=== PATIENT | male | born 1975 | race American Indian/Alaskan Native ===

== ENCOUNTER 2017-08-19 14:09 | Emergency (ER) | payer SELFPAY ==
--- NOTE | 2017-08-19 14:36 | Emergency Department Report ---
ED General Adult HPI - General Chief complaint: Chest Pain Stated complaint: CHEST PAIN Time Seen by Provider: 08/19/17 14:24 Source: patient, EMS (ems notes not available at time of chart dictation), RN notes reviewed Mode of arrival: Stretcher Limitations: No Limitations - History of Present Illness Initial comments: Primary cardiology: [facility]; Aleksandr Andrea This is a 41-year-old male, unknown to this provider previously, follows with the aforementioned ward attendant for paroxysmal A. fib, currently on systemic anticoagulation and reports compliance with systemic anticoagulation. Presents to the ER with a complaint of resolved chest pain and headache. The headache is frontal and bitemporal. It started yesterday. It is not sudden or thunderclap in nature. It did not reach maximal intensity within an hour. There is no neck pain or neck stiffness. There is no ataxia. The headache does not have exacerbating or relieving factors, with the exception of percussion of the forehead, which worsens the headache. He also describes left-sided chest pressure and pulling. It started at 10:00 this morning. It is intermittent. It does not radiates to the back, arms or neck. He denies nausea, vomiting, diaphoresis. He denies DVT, pulmonary embolus risk factors. -: Gradual Location: head, chest Quality: other (History of present illness) Consistency: other (as per history of present illness) Improves with: other (as per history of present illness) Worsens with: other (as per history of present illness) Associated Symptoms: chest pain, headaches. denies: confusion, cough, diaphoresis, fever/chills, loss of appetite, malaise, nausea/vomiting, rash, seizure, shortness of breath, syncope, weakness - Related Data Allergies Allergy/AdvReac Type Severity Reaction Status Date / Time No Known Allergies Allergy Unverified 08/19/17 14:17 ED Review of Systems ROS: Stated complaint: CHEST PAIN Other details as noted in HPI Comment: All other systems reviewed and negative Constitutional: denies: fever Cardiovascular: chest pain Neurological: headache ED Past Medical Hx - Past Medical History Hx Hypertension: Yes Hx Diabetes: Yes Additional medical history: AFIB - Social History Smoking Status: Never Smoker Substance Use Type: None ED Physical Exam - General Limitations: No Limitations General appearance: alert, in no apparent distress - Head Head exam: Present: atraumatic, normocephalic, other (there is frontal sinus tenderness to percussion) - Eye Eye exam: Present: normal appearance, EOMI. Absent: nystagmus - ENT ENT exam: Present: normal exam, normal orophraynx, mucous membranes moist, normal external ear exam - Neck Neck exam: Present: normal inspection, full ROM - Respiratory Respiratory exam: Present: normal lung sounds bilaterally. Absent: respiratory distress - Cardiovascular Cardiovascular Exam: Present: regular rate, normal rhythm, normal heart sounds. Absent: bradycardia, tachycardia, irregular rhythm, systolic murmur, diastolic murmur, rubs, gallop - GI/Abdominal GI/Abdominal exam: Present: soft, normal bowel sounds. Absent: distended, tenderness, guarding, rebound, rigid, pulsatile mass - Rectal Rectal exam: Present: deferred - Extremities Exam Extremities exam: Present: normal inspection, full ROM, normal capillary refill , other (2+ pulses noted in the bilateral upper, lower extremities, compartments are soft, there is no palpable cord, there is a negative Homans sign.). Absent: pedal edema, joint swelling, calf tenderness - Back Exam Back exam: Present: normal inspection, full ROM. Absent: paraspinal tenderness , vertebral tenderness - Neurological Exam Neurological exam: Present: alert, oriented X3, CN II-XII intact, normal gait ( negative pass pointing. Negative pronator drift. Normal [id number]. Normal gait.), other (Extraocular movements intact. Tongue midline. No facial droop. Facial sensation intact to light touch in the V1, V2, V3 distribution bilaterally. 5 and 5 strength in 4 extremities.. Sensation is intact to light touch in 4 extremities.) - Psychiatric Psychiatric exam: Present: normal affect, normal mood - Skin Skin exam: Present: warm, dry, intact, normal color. Absent: rash ED Course Vital Signs 08/19/17 08/19/17 08/19/17 13:59 14:00 14:16 Temperature Pulse Rate 69 70 65 Respiratory 11 L 15 14 Rate Blood Pressure 110/45 110/45 103/46 O2 Sat by Pulse 95 96 96 Oximetry 08/19/17 08/19/17 08/19/17 14:17 14:30 15:37 Temperature 98.8 F Pulse Rate 66 66 63 Respiratory 15 16 14 Rate Blood Pressure 110/45 103/46 105/68 O2 Sat by Pulse 96 97 98 Oximetry 08/19/17 08/19/17 08/19/17 15:45 16:00 16:15 Temperature Pulse Rate 64 67 72 Respiratory 16 Rate Blood Pressure 105/68 108/59 108/59 O2 Sat by Pulse 98 98 99 Oximetry 08/19/17 16:31 Temperature Pulse Rate 73 Respiratory 20 Rate Blood Pressure 108/59 O2 Sat by Pulse 99 Oximetry ED Medical Decision Making - Lab Data Result diagrams: 08/19/17 14:38 08/19/17 14:38 Vital Signs 08/19/17 08/19/17 08/19/17 13:59 14:00 14:16 Temperature Pulse Rate 69 70 65 Respiratory 11 L 15 14 Rate Blood Pressure 110/45 110/45 103/46 O2 Sat by Pulse 95 96 96 Oximetry 08/19/17 08/19/17 08/19/17 14:17 14:30 15:37 Temperature 98.8 F Pulse Rate 66 66 63 Respiratory 15 16 14 Rate Blood Pressure 110/45 103/46 105/68 O2 Sat by Pulse 96 97 98 Oximetry 08/19/17 08/19/17 08/19/17 15:45 16:00 16:15 Temperature Pulse Rate 64 67 72 Respiratory 16 Rate Blood Pressure 105/68 108/59 108/59 O2 Sat by Pulse 98 98 99 Oximetry 08/19/17 16:31 Temperature Pulse Rate 73 Respiratory 20 Rate Blood Pressure 108/59 O2 Sat by Pulse 99 Oximetry Lab Results 08/19/17 08/19/17 08/19/17 Range/Units 14:38 14:38 14:38 WBC 7.1 (4.5-11.0) K/mm3 RBC 5.03 (3.65-5.03) M/mm3 Hgb 14.0 (11.8-15.2) gm/dl Hct 41.8 (35.5-45.6) % MCV 83 L (84-94) fl MCH 28 (28-32) pg MCHC 34 (32-34) % RDW 14.9 (13.2-15.2) % Plt Count 239 (140-440) K/mm3 Lymph % (Auto) 19.9 (13.4-35.0) % [place] % (Auto) 6.7 (0.0-7.3) % Eos % (Auto) 0.3 (0.0-4.3) % Baso % (Auto) 1.0 (0.0-1.8) % Lymph # 1.4 (1.2-5.4) K/mm3 [place] # 0.5 (0.0-0.8) K/mm3 Eos # 0.0 (0.0-0.4) K/mm3 Baso # 0.1 (0.0-0.1) K/mm3 Seg Neutrophils % 72.1 H (40.0-70.0) % Seg Neutrophils # 5.1 (1.8-7.7) K/mm3 PT 13.8 (12.2-14.9) Sec. INR 1.01 (0.87-1.13) APTT 32.2 (24.2-36.6) Sec. Sodium 140 (137-145) mmol/L Potassium 4.4 (3.6-5.0) mmol/L Chloride 102.3 (98-107) mmol/L Carbon Dioxide 26 (22-30) mmol/L Anion Gap 16 mmol/L BUN 13 (9-20) mg/dL Creatinine 0.9 (0.8-1.5) mg/dL Estimated GFR > 60 ml/min BUN/Creatinine Ratio 14 % Glucose 115 H (75-100) mg/dL Calcium 9.4 (8.4-10.2) mg/dL Troponin T < 0.010 (0.00-0.029) ng/mL 08/19/17 Range/Units 15:45 WBC (4.5-11.0) K/mm3 RBC (3.65-5.03) M/mm3 Hgb (11.8-15.2) gm/dl Hct (35.5-45.6) % MCV (84-94) fl MCH (28-32) pg MCHC (32-34) % RDW (13.2-15.2) % Plt Count (140-440) K/mm3 Lymph % (Auto) (13.4-35.0) % [place] % (Auto) (0.0-7.3) % Eos % (Auto) (0.0-4.3) % Baso % (Auto) (0.0-1.8) % Lymph # (1.2-5.4) K/mm3 [place] # (0.0-0.8) K/mm3 Eos # (0.0-0.4) K/mm3 Baso # (0.0-0.1) K/mm3 Seg Neutrophils % (40.0-70.0) % Seg Neutrophils # (1.8-7.7) K/mm3 PT (12.2-14.9) Sec. INR (0.87-1.13) APTT (24.2-36.6) Sec. Sodium (137-145) mmol/L Potassium (3.6-5.0) mmol/L Chloride (98-107) mmol/L Carbon Dioxide (22-30) mmol/L Anion Gap mmol/L BUN (9-20) mg/dL Creatinine (0.8-1.5) mg/dL Estimated GFR ml/min BUN/Creatinine Ratio % Glucose (75-100) mg/dL Calcium (8.4-10.2) mg/dL Troponin T < 0.010 (0.00-0.029) ng/mL - EKG Data -: EKG Interpreted by Ms EKG shows normal: sinus rhythm, axis, intervals, QRS complexes, ST-T waves - EKG Data When compared to previous EKG there are: previous EKG unavailable 08/19/17 17:38 EKG #1 demonstrates sinus, 69 bpm, borderline left axis deviation, borderline atrial enlargement, abnormal EKG, not a STEMI. Repeat EKG is unchanged. - Radiology Data Radiology results: report reviewed, image reviewed Noncontrast CT scan of the brain is negative. X-ray the chest is negative. - Medical Decision Making Differential diagnosis, including but not limited to: Sinusitis, intracranial hemorrhage, migraine headache, tension headache, cluster headache, pneumonia, costochondritis, anxiety, pneumothorax Assessment and plan: 41-year-old male with 2 complaints. Patient's chest pain is low risk by the CLIFTON score, heart score criteria. Has no pulmonary embolus, DVT risk factors, is low risk by well's criteria, and the patient is perc negative; he is also taking systemic anticoagulation. Case discussed with cardiology on-call, Saritha Khan; recommends 2 sets of troponins and outpatient cardiology follow-up next week. Based on the objective data, the patient is at low risk for major adverse cardiac event. Patient has reproducible frontal sinus tenderness, has a Schuyler Coma Scale of 15 with a normal neurologic examination, the negative noncontrast CT scan of the brain. The patient was reassessed multiple times while here in the emergency department, and he was noted to be sleeping multiple times and without any distress. He is medically suitable to follow-up with his outpatient ward attendant and primary care doctor at this time. X-ray of the chest demonstrated an incidental pulmonary nodule, which is asymptomatic and can be followed up on a routine outpatient basis. Critical care attestation.: If time is entered above; I have spent that time in minutes in the direct care of this critically ill patient, excluding procedure time. ED Disposition Clinical Impression: Frontal headache, Chest pain Disposition: TO HOME OR SELFCARE Is pt being admited?: No Does the pt Need Aspirin: No Condition: Stable Instructions: Chest Pain (ED) Additional Instructions: Continue current outpatient medications. Take acetaminophen, 650 mg over-the- counter, every 4-6 hours as needed for pain, and purchase Flonase, over-the- counter, and use as directed for presumed sinusitis. Follow-up with your ward attendant within the next week as scheduled. X-ray of the chest demonstrated a nonspecific left-sided lung nodule. Follow-up with the primary care doctor for this within the next 6 weeks. Not following up as recommended may resultant undiagnosed tumor, cancer, malignancy. Return to the ER right away with new pain, worsened pain, migration of pain, fevers, chills, lethargy, irritability, projectile vomiting, change in mental status, confusion, inability to tolerate liquid feeds. Referrals: ALEX ESPINAL MD [Primary Care Provider] - 3-5 Days MICHAEL ANDREA MD [Staff Physician] - 3-5 Days TONIA BARROS MD [Staff Physician] - 3-5 Days [facility] [Provider Group] - 3-5 Days
[2017-08-19 14:55] LABS: Basophils # (Auto) 0.1 K/mm3 (0.0-0.1); Eosinophils % (Auto) 0.3 % (0.0-4.3); Hematocrit 41.8 % (35.5-45.6); Lymphocytes # (Auto) 1.4 K/mm3 (1.2-5.4); Lymphocytes % (Auto) 19.9 % (13.4-35.0); Mean Corpuscular HGB Conc 34 % (32-34); Mean Corpuscular Hemoglobin 28 pg (28-32); Mean Corpuscular Volume 83 fl (84-94); Monocytes # (Auto) 0.5 K/mm3 (0.0-0.8); Monocytes % (Auto) 6.7 % (0.0-7.3); Platelet Count 239 K/mm3 (140-440); Red Blood Count 5.03 M/mm3 (3.65-5.03); Red Cell Distribution Width 14.9 % (13.2-15.2)
[2017-08-19 15:06] LABS: INR 1.01 (0.87-1.13)
[2017-08-19 15:07] LABS: Partial Thromboplastin Time 32.2 Sec. (24.2-36.6)
[2017-08-19 15:15] LABS: BUN/Creatinine Ratio 14; Blood Urea Nitrogen 13 mg/dL (9-20); Calcium 9.4 mg/dL (8.4-10.2); Hemolysis Index 1
--- NOTE | 2017-08-19 15:26 | Cat Scan Report ---
FINAL REPORT EXAM: CT HEAD/BRAIN WO CON HISTORY: headache on eliquis TECHNIQUE: CT of the head was performed without intravenous contrast. PRIORS: None. FINDINGS: The ventricles are normal in shape and position. The ventricles are nondilated. No intracranial hemorrhage, mass, mass effect, midline shift or evidence of acute ischemic infarct. The basilar cisterns are patent. There is mild mucosal thickening of the paranasal sinuses which is likely congestive or inflammatory. The extracranial soft tissues demonstrate no abnormality. The calvarium is intact. The orbits are intact. The mastoid air cells are clear. IMPRESSION: No acute intracranial abnormality.
[2017-08-19] MEDS ORDERED: TYLENOL PO ONE (15:50)
[2017-08-19] MEDS ORDERED: REGLAN IV ONE (15:50)
[2017-08-19] MEDS ORDERED: BENADRYL IV ONE (15:50)
--- NOTE | 2017-08-19 15:58 | XRay Report ---
PA and lateral chest: Chest pain. There is a 7.4 mm noncalcified nodule in the lower left lung seen only in the frontal projection. A questionable smaller nodule is identified in the upper left lung. The lungs otherwise appear generally clear. There is no hilar or mediastinal adenopathy. The heart is normal in size and there is no vascular congestion. I have no prior exam for comparison. Impression: Indeterminate left lower lobe pulmonary nodule. Recommendation: If this patient does not have a prior exam for comparison I would recommend CT scan.
[2017-08-19 18:11] VITALS: BP 96/57
== END 2017-08-19 18:52 | disposition home or self-care (01) ==
LOC: ED 14:09
DX: R07.9 Chest pain, unspecified (principal); R51 Headache; I10 Essential (primary) hypertension; E11.9 Type 2 diabetes mellitus without complications
CPT/HCPCS: 36415; 70450; 71046; 80048; 84484; 85025; 85610; 85730; 93005; 93010; 96374; 96375; 99285; J1200; J2765